=== PATIENT | female | born 1975 | race Caucasian/White ===

== ENCOUNTER → 2021-02-21 00:50 | Outpatient (CLI) | payer BC, SELFPAY ==
[2021-02-22 16:57] LABS: SARS-CoV-2 RNA PCR Negative
== END ==
PROVIDERS: PCP Physician Assistant; Visit Provider Obstetrics & Gynecology Gynecology
DX: Z01.812 Encounter for preprocedural laboratory examination (principal); Z20.822 Contact with and (suspected) exposure to COVID-19
CPT/HCPCS: C9803; U0003; U0005

== ENCOUNTER 2021-02-21 09:17 | Outpatient (CLI) | payer BC, SELFPAY | END 2021-02-21 09:18 | disposition home or self-care (01) | LOC: ANHSURGERY 09:22 | PROVIDERS: PCP Physician Assistant; Visit Provider Obstetrics & Gynecology Gynecology | DX: Z01.818 Encounter for other preprocedural examination (principal); D68.0 Von Willebrand disease | CPT/HCPCS: 36415; 86850; 86900; 86901 ==

== ENCOUNTER 2021-04-12 11:27 | Outpatient (CLI) | payer BC, SELFPAY | END 2021-04-12 11:28 | disposition home or self-care (01) | LOC: ANHLAB 11:30 | PROVIDERS: PCP Physician Assistant; Visit Provider Obstetrics & Gynecology Gynecology | DX: N81.10 Cystocele, unspecified (principal); N81.6 Rectocele; Z01.818 Encounter for other preprocedural examination | CPT/HCPCS: 36415; 86850; 86900; 86901 ==

== ENCOUNTER 2021-04-14 00:35 | Day surgery (SDC) | payer BC, SELFPAY ==
[2021-02-10 13:42] VITALS: BMI 33.5
--- NOTE | 2021-02-24 07:36 | P.HP_ITS ---
H&P: HPI History of Present Illness Date/Time: 02/24/21 07:36 Chief Complaint: symptomatic cystocele and rectocele Narrative: 45 yo with GSI as well as symptomatic cystocele with increased pelvic pressure and symptomatic rectocele. Patient has to manually place fingers into vagina to push down to evacuate bowels. Patient prefers to proceed with surgical repair. Reviewed procedure as well as risks. Discussed risks of infection, bleeding, injury to internal organs (arvind bladder, ureters, and bowel), urinary retention, and mesh erosion. Patient questions answered and patient agrees to proceed. Review of Systems Constitutional: Constitutional: Reports other (hot flashes, night sweats) Genitourinary: Genitourinary: Reports urinary incontinence [facility] Past Medical History Medical History (Updated 02/24/21 @ 07:42 by Roxann Palomino MD) (normal spontaneous vaginal delivery) x 5 Surgical History Surgical History (Updated 02/24/21 @ 07:42 by Roxann Palomino MD) S/P laparoscopic assisted vaginal hysterectomy (LAVH) and BSO S/P laparoscopic cholecystectomy Social History Social History Years smoked: 1.5 Smoking status: Current some day smoker Tobacco type: cigarettes Additional smoking assessment comments: PT QUIT SMOKING FOR 17YRS AND RESUMED USE AFTER OF SON IN 2019 Alcohol intake: current Drinks per week: 6 Substance use: current Living arrangements: with family Gender identity (if verbalized by the patient): Female Sexual Orientation (if Verbalized by the Patient): Straight or Heterosexual Spiritual care concerns: No Meds Home Medications and Allergies Home Medications Medication Instructions Recorded Confirmed Type clonazepam 1 mg PO BID 02/10/21 02/10/21 History desvenlafaxine succinate 100 mg PO DAILY 02/10/21 02/10/21 History Allergies Allergy/AdvReac Type Severity Reaction Status Date / Time adhesive tape AdvReac Intermediate Rash Verified 02/10/21 13:59 Exam Const: General: healthy appearing and alert Orientation/consciousness: patient oriented x3 Resp: Effort & Inspection: normal respiratory effort Auscultation: clear to auscultation bilaterally Cardio: Rate: regular rate Rhythm: regular rhythm GI: GI Palp: Yes Soft to palpation, No Tenderness to palpation present (GI) and No Palpable mass present : External Female Exam: normal external appearance Speculum Exam - Vagina: normal vaginal discharge and other (3rd degree cystocele and rectocele) Bimanual exam- vagina & uterus: uterus absent Bimanual Exam- Adnexa, other: normal adnexae and No adnexal tenderness Neuro: General: patient oriented x3 Assessment and Plan Assessment and plan (1) Cystocele with rectocele: Code(s): N81.10 - Cystocele, unspecified; N81.6 - Rectocele Status: Acute Assessment and Plan: Plan anterior and posterior repair per Dr. Palomino (2) GSI (genuine stress incontinence), female: Code(s): N39.3 - Stress incontinence (female) (male) Status: Acute Assessment and Plan: plan TOT with cystoscopy per Dr. Mcdaniel (3) Von Willebrand disease: Code(s): D68.0 - Von Willebrand's disease Status: Acute Assessment and Plan: Plan Haemate P 50 unit/kg 1 hour prior to surgery then 15 units/kg q 12 hours postop
--- NOTE | 2021-02-24 08:13 | SUR.PREOP ---
0745; DR HUNTER HERE IN PREOP, ASKING TO CHECK WITH PHARMACY TO CONFIRM THEY DID ORDER THE PRE MEDICATION OF HAEMATE P. CALLED PHARMACY, SPOKE TO GAMALIEL. SHE WILL CHECK AND CALL BACK. 0748; SHARLA FROM PHARMACY CALLED, THEY DID NOT ORDER THE MEDICATION, CASE NEEDS TO BE CANCELLED PER SHARLA [facility]. 0750; CALLED OR 3. NOTIFIED DR HUNTER THAT PHARMACY DID NOT ORDER MEDICATION. SHE CANCELLED CASE. 0754; NOTIFIED PT OF SURGERY CANCELLED TODAY DUE TO NOT HAVING MEDICATION. PT UNHAPPY, I APOLOGIZED FOR THE CONFUSION. DR HUNTER'S OFFICE WITH CALL HER TO RESCHEDULE. JOHN VIDALES RN AND AZUL MAURO RN THE DIRECTOR NOTIFIED WELL.
[2021-04-09 13:23] VITALS: BMI 33.8
[2021-04-14] VITALS (16 sets, daily range): BP systolic 118–162; BP diastolic 66–98; PULSE 49–87; RESP 12–18; TEMP 36.2–36.9; O2SAT 95–100
--- NOTE | 2021-04-14 07:15 | WPDHPUPDATE1 ---
History and Physical Update Update Date/Time: 04/14/21 07:15 History and Physical has been reviewed, including an updated exam of the patient. There are NO changes in the patient's condition. Risks, benefits, and alternatives have been discussed and questions answered. Patient agrees to proceed with procedure.
[2021-04-14] MEDS: LACTATED RINGERS 1,000 ML 30 ML IV CONT ×2 (07:16→10:18)
--- NOTE | 2021-04-14 07:16 | PM.HPGS ---
History of Present Illness History of Present Illness Consent: Risks, benefits, and alternatives have been discussed and questions answered. Patient agrees to proceed with procedure. Chief complaint: cystocele, rectocele, incontinence Narrative: Roxann Norris is a 45 year old female with symptomatic cystocele, rectocele, and GSI. Patient with GSI all the time . In order to evacuate bowels, has to place fingers in vagina to push down on rectocele. Reviewed procedure of anterior, posterior repairs and TOT. She is aware Dr. Mcdaniel will be performing the TOT and cystoscopy. Risks of infection, bleeding, injury to internal organs, failure, mesh erosion, and urinary retention. 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 Voiced understanding and agrees to proceed. Review of Systems Constitutional: Constitutional: Reports night sweats (and hot flashes) Genitourinary: Genitourinary: Reports urinary incontinence [facility] Past Medical History Medical History (Updated 04/14/21 @ 07:27 by Roxann Palomino MD) Anxiety (normal spontaneous vaginal delivery) x 5 PTSD (post-traumatic stress disorder) Von Willebrand disease type 3 Surgical History Surgical History (Updated 04/14/21 @ 07:24 by Roxann Palomino MD) S/P laparoscopic assisted vaginal hysterectomy (LAVH) in 2005 BSO -one in 2011 and the other 2013 S/P laparoscopic cholecystectomy Social History Social History Years smoked: 10 Smoking status: Former smoker Tobacco type: e-cigarettes/vaping Additional smoking assessment comments: VAPE FOR 1 MONTH, 1/4 PPD Alcohol intake: current Drinks per week: 6 Substance use: current Living arrangements: with family Gender identity (if verbalized by the patient): Female Sexual Orientation (if Verbalized by the Patient): Straight or Heterosexual Spiritual care concerns: No Meds Home Medications and Allergies Home Medications Medication Instructions Recorded Confirmed Type clonazepam 1 mg PO BID 02/10/21 04/09/21 History desvenlafaxine succinate 100 mg PO DAILY 02/10/21 04/09/21 History Allergies Allergy/AdvReac Type Severity Reaction Status Date / Time adhesive tape AdvReac Intermediate Rash Verified 02/10/21 13:59 Exam Const: General: healthy appearing and alert Orientation/consciousness: patient oriented x3 Resp: Effort & Inspection: normal respiratory effort Auscultation: clear to auscultation bilaterally Cardio: Rate: regular rate Rhythm: regular rhythm GI: GI Palp: Yes Soft to palpation, No Tenderness to palpation present (GI) and No Palpable mass present : External Female Exam: normal external appearance Speculum Exam - Vagina: normal vaginal discharge and other (3rd degree cystocele and 3rd degree rectocele) Speculum Exam - Cervix: Cervix absent Bimanual exam- vagina & uterus: uterus absent and other (apex with good support) Bimanual Exam- Adnexa, other: normal adnexae and No adnexal tenderness Neuro: General: patient oriented x3 Assessment and Plan Assessment and plan (1) Cystocele with rectocele: Code(s): N81.10 - Cystocele, unspecified; N81.6 - Rectocele Status: Acute Assessment and Plan: Plan anterior and posterior repair per Dr. Palomino (2) GSI (genuine stress incontinence), female: Code(s): N39.3 - Stress incontinence (female) (male) Status: Acute Assessment and Plan: plan TOT and cystoscopy per Dr. Mcdaniel (3) Von Willebrand disease: Code(s): D68.0 - Von Willebrand's disease Status: Acute Assessment and Plan: Plan Haemate P 50 units/kg 1 hour prior to surgery the 15 units/kg q 12 hours postop
--- NOTE | 2021-04-14 07:22 | WPDANESEPPF ---
Anes - Initial Pre Proc Eval Procedure: Operation Date: 04/14/21 08:30 Proposed Procedures p Anterior and Posterior Repair - Roxann Palomino MD s Trans Obturator Taping Urethral Sling - Josh Mcdaniel MD Date/Time: 04/14/21 07:22 Surgeon: Roxann Palomino MD Pre Op Diagnosis: cystocele, rectocele, incontinence Patient Data Age: 45 Gender: F Height: 1.57 m Weight: 84 kg Allergies Allergy/AdvReac Type Severity Reaction Status Date / Time adhesive tape AdvReac Intermediate Rash Verified 02/10/21 13:59 Home Medications Medication Instructions Recorded Confirmed Type clonazepam 1 mg PO BID 02/10/21 04/09/21 History desvenlafaxine succinate 100 mg PO DAILY 02/10/21 04/09/21 History Patient hx anesthesia problems: post op nausea/vomiting Family hx anesthesia problems: none PMFSH Past Medical History Medical History Anxiety (normal spontaneous vaginal delivery) x 5 PTSD (post-traumatic stress disorder) Von Willebrand disease Surgical History Surgical History S/P laparoscopic assisted vaginal hysterectomy (LAVH) and BSO S/P laparoscopic cholecystectomy Social History Social History Years smoked: 10 Smoking status: Former smoker Tobacco type: e-cigarettes/vaping Additional smoking assessment comments: VAPE FOR 1 MONTH, 1/4 PPD Alcohol intake: current Drinks per week: 6 Substance use: current Living arrangements: with family Gender identity (if verbalized by the patient): Female Sexual Orientation (if Verbalized by the Patient): Straight or Heterosexual Spiritual care concerns: No Anes - Eval Final PreProcedure Day of Procedure 04/14/21 07:22 Patient weight: obese Heart: regular rate and rhythm Lungs: clear to auscultation Airway: Mallampati scale class II Neurological: alert and oriented Last oral intake: >/= 8 hours ASA classification: III Emergent: no Anesthetic plan: proceed Anesthesia type and monitoring: general ETT Informed Consent: The patient's anesthetic plan and its attendant risks and benefits were discussed with the patient/family/POA. Questions were solicited and answers provided to the satisfaction of the patient/family/POA.
[2021-04-14] MEDS: ACETAMINOPHEN 500 MG TABLET 1000 MG PO (07:38)
[2021-04-14] MEDS: SCOPOLAMINE 1.5 MG PATCH TRANSDERM (07:47)
[2021-04-14] MEDS: KETOROLAC 15 MG/ML VIAL (*BKC) IV PUSH (07:58)
--- NOTE | 2021-04-14 08:06 | SUR.PREOP ---
0726- PT HAS VON WILLEBRAND, DR. HUNTER ORDERED A ANTIHEMOPHILIC FACTOR TO BE GIVEN IN PRE OP. STARTED AT 0726. ENDED AT 075. PT TO GET REPEAT DOSE ON OB FLOOR 12 HOURS AFTER START TIME ON PRE OP, AROUND 1925. NO SIDE EFFECTS NOTED.
[2021-04-14] MEDS: ceFAZolin 2 GM/D5W 50 ML 2 GM/50 ML BAG IVPB (08:26)
--- NOTE | 2021-04-14 09:43 | W.PM.PROC2 ---
Procedure Note - Detailed Date of Procedure 04/14/21 Pre-op Diagnosis cystocele, rectocele, genuine stress incontinence Post-op Diagnosis same ( plus enterocele) Procedure Performed anterior and posterior vaginal repair Surgeon Roxann Palomino MD Anesthesia general and local Findings 3rd degree cystocele and rectocele and enterocele Description of Procedure The patient is taken to the operating room and placed in the dorsal lithotomy position. She was prepped and draped in the usual sterile fashion. Wilkinson catheter was placed. Weighted speculum was placed posteriorly and the base of the cystocele is grasped at 5 and 7:00 a.m. with Allis clamps. The intervening tissue was incised with a scalpel. The midline of the cystocele is injected with 1% lidocaine with epinephrine. The cystocele was dissected off the midline using Metzenbaum scissors incising the mucosa and grasping mucosa with Allis clamps as the dissection proceeded. Once the apex is reached a single Allis clamp was placed in the midline. The lateral dissection of the cystocele from the vaginal mucosa was performed using sharp and blunt dissection. The cystocele was then reduced using 0 Ethibond interrupted mattress sutures. The excess vaginal mucosa is excised and the vaginal mucosa closed using 0 Vicryl in a running locked fashion. The attention is turned to the rectocele the hymenal ring is grasped at 5 and 7:00 a.m. with Allis clamps the intervening tissue was incised with a scalpel and a triangular portion of tissue was removed from the perineum. The vaginal mucosa over the rectocele was injected with 1% lidocaine with epinephrine. The midline dissection is performed using Metzenbaum was and incising the mucosa and grasping the edges with Allis clamps once the rectocele was dissected off in the midline it was also noted that there was an enterocele so the dissection continued until that was fully visualized. A single clamp was placed at the apex. The the lateral dissection is performed using sharp and blunt dissection. The enterocele and the rectocele are reduced using 0 Ethibond horizontal mattress sutures in interrupted fashion. Once the defects are reduced the excess vaginal mucosa is dissected off using Metzenbaum scissors. The vaginal mucosa is closed using 0 Vicryl in a running locked fashion the perineal body is incorporated into this closure and closed in the deep layer and a subcuticular layer. The case was then turned over to Dr. Mcdaniel for transobturator taping and cystoscopy please see her dictation. Sponge, needle, and instrument counts are correct per the OR staff to this point. Estimated Blood Loss 10 Drains Yes (wilkinson) Packing No Pathology yes Complications No immediate complications Condition stable Disposition PACU
[2021-04-14] MEDS: DEXTROSE 5%/LACTATED RINGERS 1,000 ML 125 ML IV CONT (11:48)
--- NOTE | 2021-04-14 12:15 | PC.NURSE ---
This patient, Roxann Norris, was received from PACU per bed to room 280 on 04/14/21 at 1124. Patient/family oriented to unit policies and routines
[2021-04-14] MEDS: FENTANYL 600MCG/NS30MLPCA(*CRX 600 MCG/30 ML PCA.VIAL IV CONT (12:33)
[2021-04-14] MEDS: HYDROcodone/acetaminophen (*CRX) 10-325 MG TABLET 1 TAB PO ×3 (17:41→23:36)
[2021-04-14] MEDS: KETOROLAC 30 MG/ML VIAL (*BKC) IV PUSH (17:41)
[2021-04-14] MEDS: DOCUSATE SODIUM 100 MG CAPSULE PO (17:46)
[2021-04-14] MEDS: clonazePAM (*CRX) 0.5 MG TABLET 1 MG PO (17:47)
[2021-04-14] MEDS: IBUPROFEN 600 MG TABLET PO (23:38)
[2021-04-14] MEDS: diphenhydrAMINE HCl INJ 50 MG/ML VIAL 25 MG IV PUSH (23:58)
[2021-04-14] MEDS: LORATADINE 10 MG TABLET PO (23:58)
[2021-04-15] MEDS: diphenhydrAMINE HCl INJ 50 MG/ML VIAL 25 MG IV PUSH (02:25)
[2021-04-15] MEDS: HYDROcodone/acetaminophen (*CRX) 10-325 MG TABLET 1 TAB PO ×3 (02:35→09:31)
[2021-04-15 02:42] VITALS: BP 154/89; PULSE 61; RESP 18; TEMP 36.7
[2021-04-15 04:45] VITALS: BP 128/76
[2021-04-15] MEDS: IBUPROFEN 600 MG TABLET PO (05:33)
[2021-04-15 05:56] LABS: Basophils Percent Auto 0.1 % (0.2-1.2); Hemoglobin 13.2 g/dL (12.0-15.0); Immature Granulocyte Absolute 0.15 K/mm3 (0.00-0.031); Lymphocytes Absolute Auto 0.92 K/mm3 (0.9-3.2); Lymphocytes Percent Auto 5.9 % (18.3-44.2); Mean Corpuscular Hemoglobin 29.4 pg (26-34); Mean Corpuscular Volume 89.1 fl (80-100); Mean Platelet Volume 10.1 fl (7.4-10.4); Monocytes Absolute Auto 0.9 K/mm3 (0.1-0.6); Monocytes Percent Auto 6.1 % (2.6-8.5); Neutrophils Absolute Auto 13.5 K/mm3 (1.3-6.7); Neutrophils Percent Auto 86.9 % (45.5-73.1); Platelet Count Result 244 k/mm3 (150-375); Red Blood Count 4.49 M/mm3 (4.2-5.4); Red Cell Distribution Width 12.7 % (11.5-14.5); White Blood Count 15.5 K/mm3 (4.5-10.0)
[2021-04-15 07:50] VITALS: BP 127/79; PULSE 59; RESP 16; TEMP 36.6; O2SAT 96
--- NOTE | 2021-04-15 07:51 | PM.GYNPNOP ---
MACHINE CLOTH EXAMINER - A/P Postoperative Procedures: Procedures Operation Date: 04/14/21 08:30 Actual Procedure Side Surgeon p Anterior and Posterior Repair Not Applicable Roxann Palomino MD s Trans Obturator Taping Urethral Sling Not Applicable Josh Mcdaniel MD Postoperative day: 1 Postoperative status: doing well Postoperative plan: routine post-op care and discharge Time Spent With Patient Time: Total time spent is greater than 50% in coordination of care (as documented) at patient's floor/unit and/or counseling patient: Time with patient: less than 15 minutes MACHINE CLOTH EXAMINER- PN:Subj Post-Op Subjective Date/time seen: 04/15/21 07:51 Subjective: patient reports feeling better, patient has no complaints and pain is well controlled Exam Narrative: abdomen soft, nt MACHINE CLOTH EXAMINER - PN: Obj Data Vital Signs Vital Signs: Vital Signs - 24 hr 04/14/21 08:02 04/14/21 10:18 04/14/21 10:30 Temperature 98.1 F 97.2 F L Pulse Rate 54 L 87 68 Respiratory Rate 12 14 Blood Pressure 144/94 H 133/82 121/79 Pulse Oximetry 98 100 100 04/14/21 10:45 04/14/21 11:00 04/14/21 11:15 Temperature Pulse Rate 61 60 64 Respiratory Rate 13 14 14 Blood Pressure 153/94 H 149/98 H 141/95 H Pulse Oximetry 100 95 95 04/14/21 11:24 04/14/21 12:33 04/14/21 13:33 Temperature 98.4 F Pulse Rate 57 L Respiratory Rate 16 16 16 Blood Pressure 142/90 H Pulse Oximetry 96 97 100 04/14/21 14:33 04/14/21 15:33 04/14/21 16:05 Temperature 97.8 F Pulse Rate 61 Respiratory Rate 16 16 16 Blood Pressure 133/80 Pulse Oximetry 98 100 97 04/14/21 17:41 04/14/21 17:50 04/14/21 18:30 Temperature 97.3 F L 97.8 F Pulse Rate 49 L 59 L Respiratory Rate 16 16 18 Blood Pressure 162/91 H 118/66 Pulse Oximetry 100 100 04/14/21 23:45 04/15/21 02:42 04/15/21 04:45 Temperature 98.4 F 98.0 F Pulse Rate 60 61 Respiratory Rate 18 18 Blood Pressure 132/88 154/89 H 128/76 Pulse Oximetry Intake/Output Intake/Output: Intake & Output 04/12/21 04/13/21 04/14/21 04/15/21 23:59 23:59 23:59 23:59 Intake Total 1800 4000 Output Total 800 4200 Balance 1000 -200 Meds/Results Medications: Active Medications Generic Name Dose Route Start Last Admin Trade Name Freq PRN Reason Stop Dose Admin Hydrocodone Bitart/Acetaminophen 1 tab 04/14/21 11:19 Hydrocodone/Acetaminophen (*Crx) 5-325 Mg Tablet PO Q3H PRN Pain Rated 5 or Less Hydrocodone Bitart/Acetaminophen 1 tab 04/14/21 11:19 04/15/21 05:37 Hydrocodone/Acetaminophen (*Crx) 10-325 Mg Tablet PO 1 tab Q3H PRN Administration Pain Rated 6 or Greater Clonazepam 1 mg 04/14/21 17:00 04/14/21 17:47 Clonazepam (*Crx) 0.5 Mg Tablet PO 1 mg BID BIJU Administration Docusate Sodium 100 mg 04/14/21 17:00 04/14/21 17:46 Docusate Sodium 100 Mg Capsule PO 100 mg BID BIJU Administration Ibuprofen 600 mg 04/14/21 11:19 04/15/21 05:33 Ibuprofen 600 Mg Tablet PO 600 mg Q6H PRN Administration Cramping Ketorolac Tromethamine 30 mg 04/14/21 11:19 04/14/21 17:41 Ketorolac 30 Mg/Ml Vial (*Bkc) IV PUSH 04/19/21 11:20 30 mg Q6H PRN Administration Pain Rated 4-6 Naloxone HCl 0.1 mg 04/14/21 11:19 Naloxone Hcl 0.4 Mg/Ml Vial IV PUSH Q2M PRN Respiratory rate less than 10 Ondansetron HCl 4 mg 04/14/21 11:19 Ondansetron Inj 4 Mg/2 Ml Vial IV PUSH Q6H PRN Nausea And Vomiting Simethicone 80 mg 04/14/21 11:19 Simethicone 80 Mg Tab.Chew PO Q2H PRN Gas Labs CBC & Chem 7: 04/15/21 05:00 Labs: Laboratory Results - last 24 hr 04/15/21 05:00 WBC 15.5 H RBC 4.49 Hgb 13.2 Hct 40.0 MCV 89.1 MCH 29.4 MCHC 33.0 RDW 12.7 Plt Count 244 MPV 10.1 Immature Gran % (Auto) 1.0 H Neut % (Auto) 86.9 H Lymph % (Auto) 5.9 L [place] % (Auto) 6.1 Eos % (Auto) 0.0 Baso % (Auto) 0.1 L Lymph # (Auto) 0.92 [place] # (Auto) 0.9 H Eos # (Auto) 0.0 Baso #
--- NOTE | 2021-04-15 09:14 | P.PNAN_ITS ---
Anes - Prog Note Post-Op Date/Time: 04/15/21 09:14 Cardiovascular status: normal Respiratory status: normal Airway patency: baseline Mental status: baseline Post-Op hydration status: normal Vital Signs: Last Vital Signs Temp 36.7 C 04/15/21 02:42 Pulse 61 04/15/21 02:42 Resp 18 04/15/21 02:42 BP 128/76 04/15/21 04:45 Pulse Ox 100 04/14/21 17:50 Pain Score (VAS): 0 I/O: Intake & Output 04/14/21 04/15/21 04/15/21 23:59 07:59 15:59 Intake Total 1700 4000 Output Total 800 4200 Balance 900 -200 Laboratory Tests 04/15/21 05:00 04/15/21 05:00 WBC 15.5 H RBC 4.49 Hgb 13.2 Hct 40.0 MCV 89.1 MCH 29.4 MCHC 33.0 RDW 12.7 Plt Count 244 MPV 10.1 Immature Gran % (Auto) 1.0 H Neut % (Auto) 86.9 H Lymph % (Auto) 5.9 L [place] % (Auto) 6.1 Eos % (Auto) 0.0 Baso % (Auto) 0.1 L Lymph # (Auto) 0.92 [place] # (Auto) 0.9 H Eos # (Auto) 0.0 Baso # (Auto) 0.0 Abs Immat Gran (auto) 0.15 H Absolute Neuts (auto) 13.5 H Absolute Nucleated RBC 0.0 Nucleated RBC % 0.0 Post-procedural complaints: none Patient Feedback: Patient satisfied with anesthetic care.
[2021-04-15] MEDS: clonazePAM (*CRX) 0.5 MG TABLET 1 MG PO (09:32)
[2021-04-15] MEDS: DOCUSATE SODIUM 100 MG CAPSULE PO (09:32)
--- NOTE | 2021-04-15 12:49 | OP_ITS ---
DATE OF PROCEDURE: 04/14/2021 PREOPERATIVE DIAGNOSIS: Genuine stress incontinence. POSTOPERATIVE DIAGNOSIS: Genuine stress incontinence. PROCEDURE PERFORMED: Transobturator taping with cystoscopy. ANESTHESIA: General. COMPLICATIONS: None. ESTIMATED BLOOD LOSS: 10 cc. FINDINGS: Normal cystoscopy with bilateral ureter jet. DESCRIPTION OF PROCEDURE: The patient had underwent cryosurgery with Dr. Palomino. Please see operative note. The patient was already in dorsal lithotomy position and under general anesthesia and Alvarado catheter was in place. 2 Allis clamps were placed along the vaginal mucosa 1 cm beneath the urethra, which was injected with 1% lidocaine and a vertical incision was made 1 cm below and approximately 2 cm in length. Two stab incisions were made in the groin area. The periurethral tissue was dissected with the Metzenbaum scissors and blunt dissection to the level of the pubic bone on either side. The bladder was deviated to the patient's left while performed the procedure 1st on the patient's right. The tension free obturator tape needle was gently guided to the right groin behind the obturator canal and the right side of the urethra. The needle was removed and then sheath was placed. The same procedure was performed on the patient's left, taking care to deviate the bladder and the sheath was placed on the needle. The Alvarado catheter was removed. A cystoscope was performed as noted above. The cystoscope was removed. The Alvarado catheter was replaced and the bladder sheath sling was pulled for proper tension, approximately with Mckee scissors between the sheath and the urethra. Access sheath and mesh were cut and the vaginal mucosa was then closed with a running lock suture of 2-0 Vicryl and the puncture sites were cleaned and seal in place. The vagina was packed and the Alvarado catheter was left in place. D I MT: Mg
== END 2021-04-15 11:15 | disposition home or self-care (01) ==
LOC: ANHSURGERY 06:48 → ANHOB2 11:27
PROVIDERS: Obstetrics & Gynecology; PCP Physician Assistant; Visit Provider Obstetrics & Gynecology Gynecology
PROC: (CPT 57260; principal; 2021-04-14 08:30)
PROC: (CPT 57288; 2021-04-14 08:30)
DX: N39.3 Stress incontinence (female) (male) (principal); N81.10 Cystocele, unspecified; N81.6 Rectocele; F41.9 Anxiety disorder, unspecified; F43.10 Post-traumatic stress disorder, unspecified; D68.0 Von Willebrand disease; E66.9 Obesity, unspecified; Z68.33 Body mass index [BMI] 33.0-33.9, adult; N81.5 Vaginal enterocele; F17.210 Nicotine dependence, cigarettes, uncomplicated
CPT/HCPCS: 57288; 57265; 36415; 85025; 99199; A9270; C1771; J0690; J1100; J1200; J1885; J2250; J2405; J2704; J3010; J7030; J7120; J7121; J7187